=== PATIENT | female | born 1985 | race African-American/Black ===

== ENCOUNTER 2023-04-19 22:45 | Emergency (ER) | payer OTHER ==
[~2023-04-19] VITALS: Ht 167.6 cm; Wt 79.1 kg
[2023-04-19 22:47] VITALS: TEMP 98.1
[2023-04-20] MEDS ORDERED: NS 1,000 ML IV ONE (00:20)
[2023-04-20] MEDS ORDERED: MORPHINE 2 MG/ML 1ML VIAL IV ONE (00:20)
[2023-04-20] MEDS ORDERED: ONDANSETRON 4MG 2ML VIAL IV ONE (00:20)
[2023-04-20 00:51] LABS: BASO # 0.1 10^3/uL (0.0-0.2); BASO % 0.7 % (0.0-1.0); EOS # 0.1 10^3/uL (0.0-0.5); EOS % 1.5 % (0.0-3.0); HEMATOCRIT 36.5 % (36.0-47.0); HEMOGLOBIN 11.7 g/dl (12.0-15.5); LYMPH # 1.9 10^3/uL (1.5-5.0); LYMPH % 19.3 % (24.0-44.0); MEAN CORPUSCULAR HEMOGLOBIN 29.4 pg (27.0-33.0); MEAN CORPUSCULAR HGB CONC 32.1 g/dl (32.0-36.5); MEAN CORPUSCULAR VOLUME 91.7 fl (80.0-96.0); MONO # 0.8 10^3/uL (0.0-0.8); MONO % 7.9 % (2.0-8.0); NEUTROPHILS # 6.7 10^3/uL (1.5-8.5); PLATELET COUNT, AUTOMATED 208 10^3/uL (150-450); RED BLOOD COUNT 3.98 10^6/uL (4.00-5.40); WHITE BLOOD COUNT 9.6 10^3/uL (4.0-10.0)
[2023-04-20 01:02] LABS: LIPASE 32 U/L (12-53)
[2023-04-20 01:04] LABS: ALBUMIN 3.4 G/DL (3.2-5.2); ALKALINE PHOSPHATASE 45 U/L (46-116); ALT/SGPT 40 U/L (7.0-40); AST/SGOT 11 U/L (<34); BILIRUBIN,TOTAL 0.4 MG/DL (0.3-1.2); BLOOD UREA NITROGEN 13 MG/DL (9-23); CALCIUM LEVEL 9.3 MG/DL (8.5-10.1); CARBON DIOXIDE LEVEL 28 MMOL/L (20-31); CHLORIDE LEVEL 105 MMOL/L (98-107); CREATININE FOR GFR 0.72 MG/DL (0.55-1.30); GLOMERULAR FILTRATION RATE > 60.0 (>60); GLUCOSE, FASTING 94 MG/DL (60-100); MAGNESIUM LEVEL 1.7 MG/DL (1.8-2.4); POTASSIUM SERUM 3.8 MMOL/L (3.5-5.1); SODIUM LEVEL 140 MMOL/L (136-145); TOTAL PROTEIN 6.4 G/DL (5.7-8.2)
[2023-04-20 01:05] LABS: HCG, SERUM QUALITATIVE POSITIVE (NEGATIVE)
[2023-04-20 04:01] LABS: HCG, SERUM QUANTITATIVE 476.1 MIU/ML (<4.2)
[2023-04-20 04:21] VITALS: O2SAT 99
[2023-04-20 04:30] VITALS: BP 102/57
[2023-04-20] MEDS ORDERED: ONDA4TAB6 PO (04:35)
[2023-04-20] MEDS ORDERED: ONDANSETRON 4MG ORAL DISINTEGRATING TAB PO ONE ×2 (04:50)
[2023-04-20] MEDS ORDERED: IBUPROFEN 600MG TAB PO ONE ×2 (04:50)
== END 2023-04-20 04:59 | disposition home or self-care (01) ==
LOC: M ED 22:45
DX: O02.1 Missed abortion (principal); D55.0 Anemia due to glucose-6-phosphate dehydrogenase [G6PD] deficiency; Z88.6 Allergy status to analgesic agent
CPT/HCPCS: 76801; 76817; 80053; 83605; 83690; 83735; 84702; 84703; 85025; 86850; 86900; 86901; 93976; 96374; 96375; 99284; J2405

== ENCOUNTER 2023-04-27 12:32 | Emergency (ER) | payer OTHER ==
[~2023-04-27] VITALS: Ht 167.6 cm; Wt 81.8 kg
[~2023-04-27 12:32] MED LIST: ONDA4TAB6 PO
[2023-04-27 14:11] LABS: APPEARANCE, URINE HAZY (CLEAR); BACTERIA, URINE AUTO NEGATIVE (NEGATIVE); BILIRUBIN, URINE AUTO NEGATIVE (NEGATIVE); BLOOD, URINE BLOOD NEGATIVE (NEGATIVE); COLOR, URINE YELLOW (YELLOW); GLUCOSE, URINE (UA) AUTO NEGATIVE (NEGATIVE); KETONE, URINE AUTO NEGATIVE (NEGATIVE); LEUKOCYTE ESTERASE, URINE AUTO NEGATIVE (NEGATIVE); MUCUS, URINE SMALL (NEGATIVE); NITRITE, URINE AUTO NEGATIVE (NEGATIVE); PROTEIN, URINE AUTO NEGATIVE (NEGATIVE); RBC, URINE AUTO 0 /HPF (0-3); SPECIFIC GRAVITY URINE AUTO 1.018 (1.002-1.035); SQUAMOUS EPITHELIAL CELL UR AU 4 /HPF (0-6); UROBILINOGEN, URINE AUTO 0.2 mg/dL (0.0-2.0); WBC, URINE AUTO 0 /HPF (0-3)
[2023-04-27 14:12] LABS: BASO # 0.1 10^3/uL (0.0-0.2); BASO % 1.1 % (0.0-1.0); EOS # 0.2 10^3/uL (0.0-0.5); EOS % 3.2 % (0.0-3.0); HEMATOCRIT 37.3 % (36.0-47.0); HEMOGLOBIN 11.9 g/dl (12.0-15.5); LYMPH # 2.9 10^3/uL (1.5-5.0); LYMPH % 40.6 % (24.0-44.0); MEAN CORPUSCULAR HEMOGLOBIN 29.2 pg (27.0-33.0); MEAN CORPUSCULAR HGB CONC 31.9 g/dl (32.0-36.5); MEAN CORPUSCULAR VOLUME 91.4 fl (80.0-96.0); MONO # 0.8 10^3/uL (0.0-0.8); MONO % 11.7 % (2.0-8.0); NEUTROPHILS # 3.1 10^3/uL (1.5-8.5); NEUTROPHILS % 43.1 % (36.0-66.0); PLATELET COUNT, AUTOMATED 227 10^3/uL (150-450); RED BLOOD COUNT 4.08 10^6/uL (4.00-5.40); WHITE BLOOD COUNT 7.2 10^3/uL (4.0-10.0)
[2023-04-27 14:59] LABS: ALBUMIN 3.7 G/DL (3.2-5.2); BILIRUBIN,DIRECT 0.2 MG/DL (<0.4); BILIRUBIN,TOTAL 0.6 MG/DL (0.3-1.2); TOTAL PROTEIN 6.7 G/DL (5.7-8.2)
[2023-04-27] MEDS ORDERED: NS 1,000 ML IV ONE (15:05)
[2023-04-27] MEDS ORDERED: metroNIDAZOLE (FLAGYL) 500MG TABLET PO ONE (17:50)
[2023-04-27] MEDS ORDERED: METR-265 PO (17:53)
[2023-04-27 17:55] VITALS: BP 116/70; TEMP 98.5; O2SAT 100
== END 2023-04-27 18:03 | disposition home or self-care (01) ==
LOC: M ED 12:32
DX: N76.0 Acute vaginitis (principal); Z79.899 Other long term (current) drug therapy; Z88.6 Allergy status to analgesic agent; D75.A Glucose-6-phosphate dehydrogenase (G6PD) deficiency without anemia

== ENCOUNTER 2023-09-04 10:22 | Emergency (ER) | payer OTHER ==
[~2023-09-04] VITALS: Ht 167.6 cm; Wt 81.8 kg
[~2023-09-04 10:22] MED LIST changes: +METR-265 PO
[2023-09-04] MEDS ORDERED: ACET1TAB55 PO (10:36)
[2023-09-04 13:19] LABS: BASO # 0.1 10^3/uL (0.0-0.2); BASO % 1.5 % (0.0-1.0); EOS # 0.1 10^3/uL (0.0-0.5); EOS % 1.3 % (0.0-3.0); HEMATOCRIT 39.6 % (36.0-47.0); HEMOGLOBIN 12.4 g/dl (12.0-15.5); LYMPH # 2.3 10^3/uL (1.5-5.0); LYMPH % 41.7 % (24.0-44.0); MEAN CORPUSCULAR HEMOGLOBIN 28.9 pg (27.0-33.0); MEAN CORPUSCULAR HGB CONC 31.3 g/dl (32.0-36.5); MEAN CORPUSCULAR VOLUME 92.3 fl (80.0-96.0); MONO # 0.8 10^3/uL (0.0-0.8); MONO % 14.3 % (2.0-8.0); NEUTROPHILS # 2.3 10^3/uL (1.5-8.5); NEUTROPHILS % 41.2 % (36.0-66.0); PLATELET COUNT, AUTOMATED 218 10^3/uL (150-450); RED BLOOD COUNT 4.29 10^6/uL (4.00-5.40); WHITE BLOOD COUNT 5.5 10^3/uL (4.0-10.0)
[2023-09-04] MEDS ORDERED: NS 1,000 ML IV ONE (13:20)
[2023-09-04] MEDS ORDERED: ONDANSETRON 4MG 2ML VIAL IV ONE (13:20)
[2023-09-04 13:33] LABS: ALBUMIN 3.7 G/DL (3.2-5.2); BILIRUBIN,DIRECT 0.1 MG/DL (<0.4); BILIRUBIN,TOTAL 0.5 MG/DL (0.3-1.2)
[2023-09-04 14:27] LABS: RSV AMPLIFICATION NEGATIVE (NEGATIVE)
[2023-09-04] MEDS ORDERED: ACETAMINOPHEN *IV* 1,000 MG in IV 1 EA IV ONE (15:15)
[2023-09-04] MEDS ORDERED: PANTOPRAZOLE 40MG VIAL IV ONE (15:15)
[2023-09-04] MEDS ORDERED: ISOVUE-370 76% 100ML VIAL As Ordered ONE (15:35)
[2023-09-04] MEDS ORDERED: cefTRIAXone SOD 1 GM in D5W MINI-BAG PLUS 50 ML IV ONE (16:20)
[2023-09-04 17:14] VITALS: BP 123/76; TEMP 97; O2SAT 99
[2023-09-04] MEDS ORDERED: CIPR-249 PO (17:45)
[2023-09-04] MEDS ORDERED: ONDA4TAB6 PO (17:46)
== END 2023-09-04 18:06 | disposition home or self-care (01) ==
LOC: M ED 10:22
DX: N10 Acute pyelonephritis (principal); D75.A Glucose-6-phosphate dehydrogenase (G6PD) deficiency without anemia; Z88.6 Allergy status to analgesic agent
CPT/HCPCS: 36415; 74177; 80047; 80076; 81001; 83690; 84702; 85025; 87086; 87631; 87880; 96365; 96375; 99284; C9113; J0131; J0696; J2405; Q9967

== ENCOUNTER 2023-09-12 10:13 | Emergency (ER) | payer OTHER ==
[~2023-09-12] VITALS: Ht 165.1 cm; Wt 80.5 kg
[~2023-09-12 10:13] MED LIST changes: +ACET1TAB55 PO; +CIPR-249 PO
[2023-09-12 11:59] LABS: HCG, SERUM QUALITATIVE NEGATIVE (NEGATIVE)
[2023-09-12 12:00] LABS: BLOOD UREA NITROGEN 9 MG/DL (9-23); CALCIUM LEVEL 8.9 MG/DL (8.5-10.1); CARBON DIOXIDE LEVEL 28 MMOL/L (20-31); CHLORIDE LEVEL 106 MMOL/L (98-107); CREATININE FOR GFR 0.71 MG/DL (0.55-1.30); GLOMERULAR FILTRATION RATE > 60.0 (>60); GLUCOSE, FASTING 88 MG/DL (60-100); POTASSIUM SERUM 4.1 MMOL/L (3.5-5.1); SODIUM LEVEL 139 MMOL/L (136-145)
[2023-09-12 12:41] VITALS: BP 110/65; TEMP 98.4; O2SAT 100
== END 2023-09-12 12:50 | disposition home or self-care (01) ==
LOC: M ED 10:13
DX: R10.9 Unspecified abdominal pain (principal); D75.A Glucose-6-phosphate dehydrogenase (G6PD) deficiency without anemia; Z88.6 Allergy status to analgesic agent

== ENCOUNTER → 2023-10-26 | Outpatient (REF) | payer OTHER ==
[2023-10-26 10:48] LABS: APPEARANCE, URINE HAZY (CLEAR); BACTERIA, URINE AUTO NEGATIVE (NEGATIVE); BILIRUBIN, URINE AUTO NEGATIVE (NEGATIVE); BLOOD, URINE BLOOD NEGATIVE (NEGATIVE); COLOR, URINE YELLOW (YELLOW); GLUCOSE, URINE (UA) AUTO NEGATIVE (NEGATIVE); KETONE, URINE AUTO NEGATIVE (NEGATIVE); LEUKOCYTE ESTERASE, URINE AUTO NEGATIVE (NEGATIVE); MUCUS, URINE SMALL (NEGATIVE); NITRITE, URINE AUTO NEGATIVE (NEGATIVE); PROTEIN, URINE AUTO 1+ mg/dL (NEGATIVE); RBC, URINE AUTO 0 /HPF (0-3); SPECIFIC GRAVITY URINE AUTO 1.027 (1.002-1.035); SQUAMOUS EPITHELIAL CELL UR AU 1 /HPF (0-6); WBC, URINE AUTO 1 /HPF (0-3)
== END ==
LOC: M SMT 09:59
PROVIDERS: ATTEND Urology
DX: R93.41 Abnormal radiologic findings on diagnostic imaging of renal pelvis, ureter, or bladder (principal)
CPT/HCPCS: 81001; G0463

== ENCOUNTER 2025-02-10 14:39 | Emergency (ER) | payer OTHER ==
[~2025-02-10] VITALS: Ht 167.6 cm; Wt 81.9 kg
[~2025-02-10 14:39] MED LIST changes: +ONDA-282 PO; -ONDA4TAB6 PO
[2025-02-10 15:34] LABS: KETONE, URINE AUTO RFX TRACE mg/dL (NEGATIVE); LEUKOCYTE ESTERASE UR AUTO RFX NEGATIVE (NEGATIVE); MUCUS, URINE RFX SMALL (NEGATIVE); NITRITE, URINE AUTO RFX NEGATIVE (NEGATIVE); RBC, URINE AUTO RFX 1 /HPF (0-3); SQUAM EPITHELIAL CELL UR AURFX 0 /HPF (0-6); WBC, URINE AUTO RFX 1 /HPF (0-3)
[2025-02-10 16:50] LABS: Trichomonas vaginalis (AMP) NOT DETECTED (NEGATIVE)
[2025-02-10 17:14] LABS: GC DNA AMPLIFICATION NEGATIVE (NEGATIVE)
[2025-02-10 19:31] LABS: BASO # 0.1 10^3/uL (0.0-0.2); BASO % 1.4 % (0.0-1.0); EOS # 0.1 10^3/uL (0.0-0.5); EOS % 2.2 % (0.0-3.0); HEMATOCRIT 37.1 % (36.0-47.0); HEMOGLOBIN 11.7 g/dl (12.0-15.5); LYMPH # 2.5 10^3/uL (1.5-5.0); LYMPH % 39.4 % (24.0-44.0); MEAN CORPUSCULAR HGB CONC 31.5 g/dl (32.0-36.5); MEAN CORPUSCULAR VOLUME 92.1 fl (80.0-96.0); MONO # 0.7 10^3/uL (0.0-0.8); NEUTROPHILS # 2.9 10^3/uL (1.5-8.5); NEUTROPHILS % 45.8 % (36.0-66.0); PLATELET COUNT, AUTOMATED 208 10^3/uL (150-450); RED BLOOD COUNT 4.03 10^6/uL (4.00-5.40); WHITE BLOOD COUNT 6.3 10^3/uL (4.0-10.0)
[2025-02-10] MEDS ORDERED: ISOVUE-370 76% 100ML VIAL As Ordered ONE (19:43)
[2025-02-10] MEDS: KETOROLAC 30 MG/ML 1ML VIAL IV ONE (19:44)
[2025-02-10 19:46] LABS: LIPASE 38 U/L (12-53)
[2025-02-10 19:48] LABS: ALBUMIN 3.5 G/DL (3.2-5.2); ALKALINE PHOSPHATASE 48 U/L (35-104); ALT/SGPT 21 U/L (7.0-40); AST/SGOT 11 U/L (<34); BILIRUBIN,DIRECT 0.1 MG/DL (<0.4); BILIRUBIN,TOTAL 0.4 MG/DL (0.3-1.2); TOTAL PROTEIN 6.4 G/DL (5.7-8.2)
[2025-02-10 19:53] VITALS: BP 101/55; TEMP 98.4; O2SAT 99
[2025-02-10 20:29] LABS: HEPATITIS B SURFACE ANTIBODY POSITIVE (POSITIVE); HEPATITIS B SURFACE ANTIGEN NEGATIVE (NEGATIVE); HEPATITIS C VIRUS ABY INDEX 0.03 INDEX (<0.8); HIV 1&2 SCREEN NEGATIVE (NEGATIVE)
[2025-02-10] MEDS ORDERED: CEPH500C PO (21:11)
[2025-02-10] MEDS: CEPHALEXIN 500 MG CAP PO ONE (21:19)
[2025-02-13 23:12] LABS: HSV-1 DNA Not Detected (Not Detected); HSV-2 DNA Detected (Not Detected)
== END 2025-02-10 21:21 | disposition home or self-care (01) ==
LOC: M ED 14:39
DX: N76.0 Acute vaginitis (principal); L73.9 Follicular disorder, unspecified; N28.9 Disorder of kidney and ureter, unspecified; Z88.8 Allergy status to other drugs, medicaments and biological substances
CPT/HCPCS: 74177; 80047; 80076; 81001; 83690; 84702; 85025; 86706; 86780; 86803; 87210; 87340; 87389; 87529; 87661; 87810; 87850; 96374; 99284; J1885; Q9967